=== PATIENT | female | born 2005 | race Caucasian/White ===

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

== ENCOUNTER → 2023-11-07 10:12 | Outpatient (BNVA) | payer BC, SELFPAY | PROVIDERS: PCP Family Medicine; Visit Provider Family Medicine | DX: G43.009 Migraine without aura, not intractable, without status migrainosus (principal); R53.83 Other fatigue; Z79.899 Other long term (current) drug therapy | CPT/HCPCS: 80053; 82306; 82607; 83540; 83735; 84443; 85025 ==